=== PATIENT | male | born 1995 | race Caucasian/White ===

== ENCOUNTER 2016-12-27 13:54 | Emergency (ER) | payer OTHER ==
[~2016-12-27] VITALS: Wt 81.0 kg
[~2016-12-27 13:54] MED LIST: IBUP800T25 PO; SODI44SP11 NS
[2016-12-27] MEDS ORDERED: LIDOCAINE 1% (MDV) 20 ML INJ INJ STA (15:53)
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
[2016-12-27] MEDS ORDERED: CYCL-319 PO (16:11)
[2016-12-27] MEDS ORDERED: CEPH-443 PO (16:11)
[2016-12-27] MEDS ORDERED: NAPR-260 PO (16:11)
== END 2016-12-27 16:23 | disposition home or self-care (01) ==
LOC: FTE 13:54
DX: S16.1XXA Strain of muscle, fascia and tendon at neck level, initial encounter (principal); L60.0 Ingrowing nail; V49.50XA Passenger injured in collision with unspecified motor vehicles in traffic accident, initial encounter
CPT/HCPCS: 11765; Z7502; Z7610